=== PATIENT | female | born 1955 | race Caucasian/White ===

== ENCOUNTER → 2017-12-08 | Outpatient (CLI) | payer BC ==
[2017-12-08 08:30] LABS: Basophils # (auto) 0.1 uL; Basophils % (auto) 1.1 % (0.0-2.0); Eosinophils # (auto) 0.2 uL; Hematocrit 41.6 % (36.0-46.0); Hemoglobin 13.9 g/dL (12.2-16.2); Lymphocytes # (auto) 1.9 uL; Lymphocytes % (auto) 30.3 % (10.0-50.0); Mean Corpuscular Hemoglobin 31.4 pg (28.0-32.0); Mean Corpuscular Hgb Conc. 33.5 g/dL (32.0-36.0); Mean Corpuscular Volume 93.8 fL (80.0-100.0); Monocytes # (auto) 0.4 uL; Monocytes % (auto) 6.8 % (0.0-12.0); Neutrophils # (auto) 3.6 uL; Neutrophils % (auto) 58.8 % (37.0-80.0); Nucleated Red Blood Cells % 0.1 %; Platelet Count (auto) 298 10^3/uL (140-450); Red Blood Cells 4.43 10^6/uL (4.0-5.20); White Blood Cell 6.2 10^3/uL (4.4-10.8)
[2017-12-08 08:57] LABS: Urine Bacteria NONE SEEN /hpf (None Seen); Urine Blood Negative /uL (Negative); Urine Specific Gravity 1.013 (1.001-1.035); Urine WBC 1 /hpf (0 - 5)
[2017-12-08 10:11] LABS: BUN/Creatinine Ratio 15.2; Potassium 4.7 mmol/L (3.5-5.1)
== END | disposition home or self-care (01) ==
LOC: LAB 07:15
PROVIDERS: ATTEND Physician Assistant
DX: Z41.1 Encounter for cosmetic surgery (principal); N64.2 Atrophy of breast; M06.9 Rheumatoid arthritis, unspecified
CPT/HCPCS: 36415; 80048; 81001; 81025; 85025

== ENCOUNTER → 2018-08-31 | Outpatient (CLI) | payer BC ==
[2018-08-31 09:36] LABS: Basophils # (auto) 0.1 uL; Basophils % (auto) 1.1 % (0.0-2.0); Eosinophils # (auto) 0 uL; Eosinophils % (auto) 0.3 % (0.0-7.0); Hematocrit 43.6 % (36.0-46.0); Hemoglobin 14.5 g/dL (12.2-16.2); Lymphocytes # (auto) 2.4 uL; Lymphocytes % (auto) 22.8 % (10.0-50.0); Mean Corpuscular Hemoglobin 33.2 pg (28.0-32.0); Mean Corpuscular Hgb Conc. 33.2 g/dL (32.0-36.0); Mean Corpuscular Volume 100.1 fL (80.0-100.0); Monocytes # (auto) 0.7 uL; Monocytes % (auto) 6.2 % (0.0-12.0); Neutrophils # (auto) 7.4 uL; Neutrophils % (auto) 69.6 % (37.0-80.0); Platelet Count (auto) 378 10^3/uL (140-450); Red Blood Cells 4.35 10^6/uL (4.0-5.20); Red Cell Distribution Width 12.9 % (11.8-14.3); Urine Blood TRACE /uL (Negative); Urine Specific Gravity 1.003 (1.001-1.035); White Blood Cell 10.6 10^3/uL (4.4-10.8)
[2018-08-31 09:58] LABS: BUN/Creatinine Ratio 15.2; Potassium 3.8 mmol/L (3.5-5.1)
== END | disposition home or self-care (01) ==
LOC: LAB 09:20
PROVIDERS: ATTEND Physician Assistant
DX: Z01.818 Encounter for other preprocedural examination (principal)
CPT/HCPCS: 36415; 80048; 81003; 85025

== ENCOUNTER 2019-02-08 20:56 | Emergency (ER) | payer BC ==
[~2019-02-08] VITALS: Ht 162.6 cm; Wt 52.2 kg
[2019-02-09 02:00] VITALS: BP 118/81
== END 2019-02-09 03:03 | disposition home or self-care (01) ==
LOC: ER 20:56
DX: S30.1XXA Contusion of abdominal wall, initial encounter (principal); I25.2 Old myocardial infarction; Z88.2 Allergy status to sulfonamides; X58.XXXA Exposure to other specified factors, initial encounter; Y93.89 Activity, other specified; Y99.8 Other external cause status; Y92.89 Other specified places as the place of occurrence of the external cause
CPT/HCPCS: 73700

== ENCOUNTER → 2019-04-26 | Outpatient (CLI) | payer BC | END | disposition home or self-care (01) | LOC: XYW 08:25 | PROVIDERS: ATTEND Internal Medicine | DX: I08.1 Rheumatic disorders of both mitral and tricuspid valves (principal); I42.9 Cardiomyopathy, unspecified; F41.9 Anxiety disorder, unspecified; Z88.2 Allergy status to sulfonamides | CPT/HCPCS: 93306 ==

== ENCOUNTER 2019-08-11 10:39 | Emergency (ER) | payer BC ==
[~2019-08-11] VITALS: Ht 162.6 cm; Wt 55.8 kg
[2019-08-11] MEDS ORDERED: TETRACAINE HCL 2 % TOP SOL 30ML MT ONE (13:15)
[2019-08-11] MEDS ORDERED: OPHTHALMIC IRRIGATION SOLN 30ML RIGHTEYE ONE (13:15)
[2019-08-11] MEDS ORDERED: TETRACAINE HCL 0.5% OPTH(EYE) SOLN 4ML EACHEYE ONE (13:30)
[2019-08-11] MEDS ORDERED: FLUORESCEIN SOD 1 MG TEST STRIP EACHEYE ONE (13:30)
[2019-08-11] MEDS ORDERED: NEOMYCIN-POLYMY-DEXAMETH 0.1% OPTH(EYE) OINT 3.5GM RIGHTEYE ONE (14:00)
[2019-08-11 14:15] VITALS: BP 120/78
== END 2019-08-11 14:15 | disposition home or self-care (01) ==
LOC: ER 10:39
DX: H18.821 Corneal disorder due to contact lens, right eye (principal); I25.2 Old myocardial infarction; Z88.2 Allergy status to sulfonamides

== ENCOUNTER → 2021-06-29 | Outpatient (CLI) | payer BC | END | disposition home or self-care (01) | LOC: XYW 08:07 | PROVIDERS: ATTEND Internal Medicine | DX: I07.1 Rheumatic tricuspid insufficiency (principal); I05.0 Rheumatic mitral stenosis; I35.9 Nonrheumatic aortic valve disorder, unspecified; I35.0 Nonrheumatic aortic (valve) stenosis; I77.819 Aortic ectasia, unspecified site | CPT/HCPCS: 93306 ==

== ENCOUNTER → 2023-03-20 | Outpatient (CLI) | payer BC ==
[2023-03-20 10:33] LABS: Albumin 4.9 g/dL (3.2-4.8); Bilirubin, Direct 0.2 mg/dL (<0.3); Bilirubin, Total 0.7 mg/dL (0.2-1.0)
[2023-03-20 10:34] LABS: Total Protein 7.3 g/dL (5.7-8.2)
[2023-03-20 11:06] LABS: Hepatitis B Surface Antigen Negative (Negative)
[2023-03-20 11:26] LABS: Hepatitis A Ab IgM Negative
[2023-03-20 11:27] LABS: Hepatitis B Core IgM Negative; Hepatitis C Antibody Negative (Negative)
== END | disposition home or self-care (01) ==
LOC: LAB 09:41
DX: R74.8 Abnormal levels of other serum enzymes (principal)
CPT/HCPCS: 36415; 80076; 86705; 86709; 86803; 87340

== ENCOUNTER 2023-05-23 17:36 | Emergency (ER) | payer BC ==
[~2023-05-23] VITALS: Ht 162.6 cm; Wt 50.0 kg
[2023-05-23 18:17] LABS: Basophils # (auto) 0 10 ^3/uL (0-0.2); Basophils % (auto) 0.3 % (0.0-2.0); Eosinophils # (auto) 1.4 10 ^3/uL (0-0.8); Hemoglobin 10.4 g/dL (12.2-16.2); Mean Corpuscular Hemoglobin 31.2 pg (28.0-32.0); Mean Corpuscular Hgb Conc. 32.9 g/dL (32.0-36.0); Red Cell Distribution Width 15.7 % (11.8-14.3)
[2023-05-23 18:20] LABS: Eosinophils % (auto) 12.4 % (0.0-7.0); Hematocrit 31.6 % (36.0-46.0); Lymphocytes # (auto) 1.9 10 ^3/uL (0.4-5.4); Lymphocytes % (auto) 16.8 % (10.0-50.0); Mean Corpuscular Volume 94.8 fL (80.0-100.0); Monocytes # (auto) 0.7 10 ^3/uL (0-1.3); Monocytes % (auto) 6.5 % (0.0-12.0); Neutrophils # (auto) 7.2 10 ^3/uL (1.6-8.6); Nucleated Red Blood Cells % 0.1 %; Red Blood Cells 3.33 10^6/uL (4.0-5.20); White Blood Cell 11.3 10^3/uL (4.4-10.8)
[2023-05-23 18:33] LABS: Alanine Aminotransferase 59 U/L (7-40); Albumin 4.4 g/dL (3.2-4.8); Alkaline Phosphatase 186 U/L (46-116); Anion Gap 7 (5-15); Aspartate Aminotransferase 58 U/L (13-40); BUN/Creatinine Ratio 15.2 (10.0-20.0); Blood Urea Nitrogen 10 mg/dL (9-23); Calcium 9.2 mg/dL (8.7-10.4); Carbon Dioxide 26 mmol/L (20-30); Chloride 103 mmol/L (98-107); Glucose 101 mg/dL (74-106); Sodium 136 mmol/L (136-145)
[2023-05-23 18:34] LABS: Bilirubin, Total 0.5 mg/dL (0.2-1.0)
[2023-05-23] MEDS ORDERED: ONDANSETRON HCL 4 MG/2 ML VIAL IV ONE (19:15)
[2023-05-23] MEDS ORDERED: SODIUM CHLORIDE 0.9% 1,000 ML IV ONE (19:15)
[2023-05-23] MEDS ORDERED: FAMOTIDINE (10MG/ML) 2ML VL IV ONE (19:15)
[2023-05-23] MEDS ORDERED: HYDROmorphone HCL 2 MG/ML VL/or syr IV ONE (19:15)
[2023-05-23] MEDS ORDERED: SODIUM CHLORIDE 0.9% 1,000 ML IVB ONE (19:15)
[2023-05-23 19:57] LABS: Partial Thromboplastin Time 28.5 SEC (24.5-34.5); Prothrombin Time 10.5 sec (9.3-11.8)
[2023-05-23] MEDS ORDERED: IOHEXOL 350 MG/ML 100ML IJ ONE (20:42)
[2023-05-23 21:46] VITALS: PULSE 76; RESP 10; O2SAT 94
[2023-05-24 00:30] VITALS: TEMP 98.2
[2023-05-24] MEDS ORDERED: ONDANSETRON HCL 4 MG/2 ML VIAL ONE (01:10)
[2023-05-24] MEDS ORDERED: HYDROmorphone HCL 2 MG/ML VL/or syr ONE (01:10)
[2023-05-24 01:30] VITALS: O2SAT 96
[2023-05-24 01:40] VITALS: BP 132/75; PULSE 76; RESP 15
[2023-05-24] MEDS ORDERED: HYDROmorphone HCL 2 MG/ML VL/or syr IV ONE (01:45)
[2023-05-24] MEDS ORDERED: ONDANSETRON HCL 4 MG/2 ML VIAL IV ONE (01:45)
[2023-05-24 03:10] LABS: Urine Bacteria NONE SEEN /hpf (None Seen); Urine Blood Negative /uL (Negative); Urine Clarity Clear (Clear); Urine Color Colorless (Yellow); Urine Protein, UAD Negative (Negative); Urine Urobilinogen Normal (Negative); Urine WBC 5 /hpf (0 - 5)
[2023-05-24 03:11] LABS: Urine Specific Gravity > 1.050 (1.001-1.035)
[2023-05-24] MEDS ORDERED: NAPR-1334 PO (03:27)
[2023-05-24] MEDS ORDERED: PANT40TA2 PO (03:27)
[2023-05-24] MEDS ORDERED: METO-281 PO (03:27)
[2023-05-25] MEDS ORDERED: NAPR-1334 PO (09:55)
[2023-05-25] MEDS ORDERED: PANT40TA2 PO (09:55)
[2023-05-25] MEDS ORDERED: METO-281 PO (09:55)
== END 2023-05-24 04:11 | disposition home or self-care (01) ==
LOC: ER 17:36
DX: I71.40 Abdominal aortic aneurysm, without rupture, unspecified (principal); J90 Pleural effusion, not elsewhere classified; R79.89 Other specified abnormal findings of blood chemistry; I10 Essential (primary) hypertension; Z86.79 Personal history of other diseases of the circulatory system; Z98.890 Other specified postprocedural states
CPT/HCPCS: 36415; 70498; 71045; 71260; 74177; 80053; 81001; 83735; 83880; 84443; 84484; 85025; 85379; 85610; 85730; 93005; 96361; 96374; 96375; 96376; 99285; J1170; J2405; J3490; J7030; Q9967

== ENCOUNTER 2023-11-15 10:54 | Inpatient (IN) | payer BC ==
[~2023-11-15] VITALS: Ht 162.6 cm; Wt 52.8 kg
[~2023-11-15 10:54] MED LIST: ASPI1TAB20 PO; ATOR10TA52 PO; AZIT-43 PO; CARV6.2517 PO; ESCI20TA PO; LISI20TA56 PO; METO-281 PO; NAPR-1335 PO; PANT40TA2 PO; POM PO; PRED20TA2 PO; TEMA30CA5 PO
[2023-11-15] MEDS: IOHEXOL 350 MG/ML 100ML IJ ONE (11:29)
[2023-11-15 11:37] LABS: Basophils # (auto) 0 10 ^3/uL (0-0.2); Basophils % (auto) 0.2 % (0.0-2.0); Eosinophils # (auto) 0.1 10 ^3/uL (0-0.8); Eosinophils % (auto) 0.6 % (0.0-7.0); Hematocrit 40.2 % (36.0-46.0); Hemoglobin 13.2 g/dL (12.2-16.2); Mean Corpuscular Hemoglobin 30.7 pg (28.0-32.0); Mean Corpuscular Hgb Conc. 32.8 g/dL (32.0-36.0); Mean Corpuscular Volume 93.6 fL (80.0-100.0); Monocytes # (auto) 0.8 10 ^3/uL (0-1.3); Monocytes % (auto) 5.7 % (0.0-12.0); Neutrophils % (auto) 86.5 % (37.0-80.0); Red Cell Distribution Width 15.4 % (11.8-14.3); White Blood Cell 13.9 10^3/uL (4.4-10.8)
[2023-11-15 11:52] LABS: Alanine Aminotransferase 46 U/L (7-40); Alkaline Phosphatase 112 U/L (46-116); Calcium 10.3 mg/dL (8.5-10.1)
[2023-11-15 11:53] LABS: Albumin 3.9 g/dL (3.2-4.8); Anion Gap 3 (5-15); Aspartate Aminotransferase 88 U/L (13-40); BUN/Creatinine Ratio 11.9 (10.0-20.0); Bilirubin, Total 0.7 mg/dL (0.2-1.0); Blood Urea Nitrogen 12 mg/dL (9-23); Carbon Dioxide 26 mmol/L (20-30); Chloride 102 mmol/L (98-107); Glucose 125 mg/dL (74-106); Potassium 4.4 mmol/L (3.5-5.1); Sodium 131 mmol/L (136-145); Total Protein 7.2 g/dL (5.7-8.2)
[2023-11-15] MEDS: SODIUM CHLORIDE 0.9% 1,000 ML IV ONE (12:30)
[2023-11-15 13:08] LABS: Urine Bacteria None Seen /hpf (None Seen)
[2023-11-15 13:16] LABS: Urine Blood Negative /uL (Negative); Urine Clarity Clear (Clear); Urine Color Light-Yellow (Yellow); Urine Protein, UAD TRACE (Negative); Urine Specific Gravity 1.049 (1.001-1.035); Urine Urobilinogen Normal (Negative); Urine WBC 2 /hpf (0 - 5)
[2023-11-15 15:15] VITALS: PULSE 64; RESP 13; O2SAT 98
[2023-11-15] MEDS: HYDROmorphone HCL 2 MG/ML VL/or syr IV ONE (16:30)
[2023-11-15] MEDS: ONDANSETRON HCL 4 MG/2 ML VIAL IV ONE (16:31)
[2023-11-15] MEDS ORDERED: hydrALAZINE HCL 20 MG/ML VL IV PRN (17:15)
[2023-11-15] MEDS ORDERED: ACETAMINOPHEN 325 MG TAB PO PRN (18:15)
[2023-11-15] MEDS ORDERED: MORPHINE SULFATE INJ 2 MG/ml SYRG IV PRN ×2 (18:15)
[2023-11-15] MEDS ORDERED: NITROGLYCERIN 0.4 MG SL TAB SL PRN (18:15)
[2023-11-15] MEDS ORDERED: DOCUSATE SOD 100 MG CAP PO PRN (18:15)
[2023-11-15] MEDS: cefTRIAXone 1GM/50ML D5W 50 ML IV ONE (18:34)
[2023-11-15 19:30] VITALS: PULSE 81; RESP 13; O2SAT 96
[2023-11-15] MEDS: HYDROcodone-ACET 5/325MG TAB PO PRN (20:57)
[2023-11-15] MEDS: SODIUM CHLOR 0.9% PF (SALINE LOCK) 10ML VIAL/SYR IV SCH (22:24)
[2023-11-15] MEDS: ATORVASTATIN 20 MG TAB PO SCH (22:24)
[2023-11-15] MEDS: CARVEDILOL 3.125 MG TAB PO SCH (22:24)
[2023-11-15 23:18] VITALS: BP 122/63; PULSE 69; RESP 18; TEMP 98.2; TEMP 98.7; O2SAT 97; O2SAT 98
[2023-11-15] MEDS: MELATONIN 5 MG TAB PO ONE (23:58)
[2023-11-16] VITALS (10 sets, daily range): BP systolic 99–128; BP diastolic 52–69; PULSE 60–91; RESP 17–20; TEMP 98.1–98.8; O2SAT 95–100
[2023-11-16] MEDS: METOCLOPRAMIDE HCL 5MG/ml INJ 2ml VIAL IV SCH (00:24)
[2023-11-16] MEDS: PANTOPRAZOLE 40 MG TAB PO SCH (05:36)
[2023-11-16 07:21] LABS: Basophils # (auto) 0.1 10 ^3/uL (0-0.2); Basophils % (auto) 0.5 % (0.0-2.0); Eosinophils # (auto) 0.1 10 ^3/uL (0-0.8); Eosinophils % (auto) 0.9 % (0.0-7.0); Hematocrit 36.8 % (36.0-46.0); Hemoglobin 12.3 g/dL (12.2-16.2); Lymphocytes # (auto) 1.5 10 ^3/uL (0.4-5.4); Lymphocytes % (auto) 11.7 % (10.0-50.0); Mean Corpuscular Hemoglobin 31.2 pg (28.0-32.0); Mean Corpuscular Hgb Conc. 33.3 g/dL (32.0-36.0); Mean Corpuscular Volume 93.6 fL (80.0-100.0); Monocytes # (auto) 1.1 10 ^3/uL (0-1.3); Monocytes % (auto) 8.4 % (0.0-12.0); Neutrophils % (auto) 78.5 % (37.0-80.0); Red Blood Cells 3.93 10^6/uL (4.0-5.20); Red Cell Distribution Width 15.5 % (11.8-14.3); White Blood Cell 12.8 10^3/uL (4.4-10.8)
[2023-11-16 07:31] LABS: Alanine Aminotransferase 39 U/L (7-40); Alkaline Phosphatase 99 U/L (46-116); Anion Gap 1 (5-15); Aspartate Aminotransferase 57 U/L (13-40); BUN/Creatinine Ratio 12.2 (10.0-20.0); Blood Urea Nitrogen 12 mg/dL (9-23); Calcium 9.4 mg/dL (8.5-10.1); Carbon Dioxide 28 mmol/L (20-30); Chloride 106 mmol/L (98-107); Glucose 107 mg/dL (74-106); Potassium 4.7 mmol/L (3.5-5.1); Sodium 135 mmol/L (136-145)
[2023-11-16 07:32] LABS: Bilirubin, Total 0.4 mg/dL (0.2-1.0); Total Protein 6.4 g/dL (5.7-8.2)
[2023-11-16] MEDS: cefTRIAXone 1GM/50ML D5W 50 ML IV SCH (08:28)
[2023-11-16] MEDS: CITALOPRAM HYDROBR 20 MG TAB PO SCH (08:29)
[2023-11-16] MEDS: ASPirin 81 mg TAB PO SCH (08:30)
[2023-11-16] MEDS: ENOXAPARIN SOD 40 MG/0.4 ML SYRINGE SC SCH (08:31)
[2023-11-16] MEDS: LISINOPRIL 20 MG TAB PO SCH (09:30)
[2023-11-16] MEDS: ONDANSETRON HCL 4 MG/2 ML VIAL IV PRN (10:30)
[2023-11-16] MEDS ORDERED: ATOR20TA PO (11:16)
[2023-11-16] MEDS ORDERED: TEMA15CA PO (11:16)
[2023-11-16] MEDS ORDERED: CARV3.1240 PO (11:16)
[2023-11-16] MEDS ORDERED: METO10TA3 PO (11:17)
[2023-11-16] MEDS ORDERED: ALPR0.254 PO (11:29)
[2023-11-16] MEDS ORDERED: POTA-220 PO (11:29)
[2023-11-16] MEDS ORDERED: FURO20TA3 PO (11:29)
[2023-11-16] MEDS: FUROSEMIDE 20 MG TAB PO ONE (12:43)
[2023-11-17] VITALS (8 sets, daily range): BP systolic 122–133; BP diastolic 52–65; PULSE 63–76; RESP 16–20; TEMP 37.1; O2SAT 94–96
[2023-11-17 06:50] LABS: Basophils # (auto) 0 10 ^3/uL (0-0.2); Basophils % (auto) 0.5 % (0.0-2.0); Eosinophils # (auto) 0.2 10 ^3/uL (0-0.8); Eosinophils % (auto) 1.5 % (0.0-7.0); Hemoglobin 11.5 g/dL (12.2-16.2); Lymphocytes # (auto) 1.9 10 ^3/uL (0.4-5.4); Lymphocytes % (auto) 18.3 % (10.0-50.0); Mean Corpuscular Hemoglobin 31.8 pg (28.0-32.0); Mean Corpuscular Hgb Conc. 33.8 g/dL (32.0-36.0); Mean Corpuscular Volume 93.9 fL (80.0-100.0); Monocytes # (auto) 1.2 10 ^3/uL (0-1.3); Monocytes % (auto) 11.6 % (0.0-12.0); Neutrophils # (auto) 7.2 10 ^3/uL (1.6-8.6); Neutrophils % (auto) 68.1 % (37.0-80.0); Nucleated Red Blood Cells % 0.1 %; Red Blood Cells 3.62 10^6/uL (4.0-5.20); Red Cell Distribution Width 15.5 % (11.8-14.3); White Blood Cell 10.5 10^3/uL (4.4-10.8)
[2023-11-17 07:00] LABS: Anion Gap 1 (5-15); Carbon Dioxide 30 mmol/L (20-30); Chloride 104 mmol/L (98-107); Potassium 4.7 mmol/L (3.5-5.1); Sodium 135 mmol/L (136-145)
[2023-11-17 07:02] LABS: Calcium 9.7 mg/dL (8.7-10.4)
[2023-11-17 07:07] LABS: BUN/Creatinine Ratio 13.6 (10.0-20.0); Blood Urea Nitrogen 14 mg/dL (9-23); Glucose 89 mg/dL (74-106)
[2023-11-17] MEDS ORDERED: GADOTERATE MEG 7.5 MMOL/15ml INJ (0.5MMOL/ml) IV ONE (07:17)
[2023-11-17] MEDS: ASPirin 81 mg TAB PO SCH (10:35)
[2023-11-17] MEDS: FUROSEMIDE 20 MG TAB PO SCH (10:35)
== END 2023-11-17 16:54 | disposition home or self-care (01) | DRG 280 ==
LOC: EDUNIT# 10:54 → EDBD 10:54 → ER 10:54 → TELE 18:10 → TELE-WESTW 18:10
PROVIDERS: ADMIT Internal Medicine Geriatric Medicine; ATTEND Internal Medicine Geriatric Medicine
DX: I71.02 Dissection of abdominal aorta (principal); I77.72 Dissection of iliac artery; I21.A1 Myocardial infarction type 2; N28.0 Ischemia and infarction of kidney; Q79.60 Ehlers-Danlos syndrome, unspecified; G82.20 Paraplegia, unspecified; I71.011 Dissection of aortic arch; I71.019 Dissection of thoracic aorta, unspecified; I10 Essential (primary) hypertension; E78.5 Hyperlipidemia, unspecified; F32.A Depression, unspecified; F41.9 Anxiety disorder, unspecified; K21.9 Gastro-esophageal reflux disease without esophagitis; F17.210 Nicotine dependence, cigarettes, uncomplicated; I27.20 Pulmonary hypertension, unspecified; I44.0 Atrioventricular block, first degree; Z88.2 Allergy status to sulfonamides; Z87.440 Personal history of urinary (tract) infections; Z80.7 Family history of other malignant neoplasms of lymphoid, hematopoietic and related tissues
CPT/HCPCS: 36415; 70450; 71260; 72157; 72158; 74177; 80048; 80053; 81001; 83615; 83735; 84484; 85025; 85379; 93005; 96365; 96375; 99291; G0378; J2405

== ENCOUNTER 2024-03-08 09:38 | Day surgery (SDC) | payer BC ==
[2024-03-06 10:02] LABS: Urine Bacteria None Seen /hpf (None Seen)
[2024-03-06 10:12] LABS: Basophils # (auto) 0 10 ^3/uL (0-0.2); Basophils % (auto) 0.6 % (0.0-2.0); Eosinophils # (auto) 0 10 ^3/uL (0-0.8); Eosinophils % (auto) 0.4 % (0.0-7.0); Hematocrit 36.5 % (36.0-46.0); Hemoglobin 12.7 g/dL (12.2-16.2); Lymphocytes # (auto) 1.1 10 ^3/uL (0.4-5.4); Lymphocytes % (auto) 14.6 % (10.0-50.0); Mean Corpuscular Hemoglobin 35.3 pg (28.0-32.0); Mean Corpuscular Hgb Conc. 34.9 g/dL (32.0-36.0); Mean Corpuscular Volume 101.1 fL (80.0-100.0); Monocytes # (auto) 0.5 10 ^3/uL (0-1.3); Monocytes % (auto) 6.7 % (0.0-12.0); Neutrophils # (auto) 5.6 10 ^3/uL (1.6-8.6); Neutrophils % (auto) 77.7 % (37.0-80.0); Platelet Count (auto) 247 10^3/uL (140-450); Red Blood Cells 3.61 10^6/uL (4.0-5.20); Red Cell Distribution Width 14.2 % (11.8-14.3); White Blood Cell 7.3 10^3/uL (4.4-10.8)
[2024-03-06 10:42] LABS: INR 1.01 (0.9-1.15); Partial Thromboplastin Time 26.8 SEC (24.5-34.5); Prothrombin Time 10.7 sec (9.3-11.8)
[2024-03-06 10:48] LABS: Urine Blood 1+ /uL (Negative); Urine Clarity Clear (Clear); Urine Color Yellow (Yellow); Urine Protein, UAD 1+ (Negative); Urine Specific Gravity 1.014 (1.001-1.035); Urine Urobilinogen Normal (Negative); Urine WBC 2 /hpf (0 - 5); Urine pH 6.5 (5.0-9.0)
[2024-03-06 10:59] LABS: Alanine Aminotransferase 79 U/L (7-40); Albumin 4.4 g/dL (3.2-4.8); Alkaline Phosphatase 156 U/L (46-116); Anion Gap 5 (5-15); Aspartate Aminotransferase 159 U/L (13-40); BUN/Creatinine Ratio 10.9 (10.0-20.0); Blood Urea Nitrogen 11 mg/dL (9-23); Carbon Dioxide 29 mmol/L (20-30); Chloride 105 mmol/L (98-107); Glucose 89 mg/dL (74-106); Potassium 4.2 mmol/L (3.5-5.1); Sodium 139 mmol/L (136-145)
[2024-03-06 11:00] LABS: Total Protein 6.9 g/dL (5.7-8.2)
[~2024-03-08] VITALS: Ht 162.6 cm; Wt 54.4 kg
[~2024-03-08 09:38] MED LIST changes: +ALPR0.254 PO; -ATOR10TA52 PO; +ATOR20TA PO; -AZIT-43 PO; +CARV3.1240 PO; -CARV6.2517 PO; +FURO20TA3 PO; -METO-281 PO; +METO10TA3 PO; -NAPR-1335 PO; +POTA-220 PO; -PRED20TA2 PO; -TEMA30CA5 PO
[2024-03-08] MEDS ORDERED: MIDAZOLAM HCL 2MG/2ML 2ml VIAL (1mg/ml) ONE (11:37)
[2024-03-08] MEDS ORDERED: fentaNYL CITRATE 100 MCG/2 ML VL ONE (11:37)
[2024-03-08] MEDS ORDERED: ONDANSETRON HCL 4 MG/2 ML VIAL ONE (11:44)
[2024-03-08 11:57] VITALS: PULSE 59; RESP 11; O2SAT 97
[2024-03-08 12:25] VITALS: BP 146/67; PULSE 55; RESP 16; TEMP 97; O2SAT 98
[2024-03-08] MEDS ORDERED: PROPOFOL 10 MG/ML 20 ML IV ONE (12:52)
== END 2024-03-08 12:40 | disposition home or self-care (01) ==
LOC: GI 09:38
PROVIDERS: ATTEND Internal Medicine Gastroenterology
DX: Z12.11 Encounter for screening for malignant neoplasm of colon (principal); D12.6 Benign neoplasm of colon, unspecified; K64.0 First degree hemorrhoids; K63.5 Polyp of colon; I10 Essential (primary) hypertension; I25.2 Old myocardial infarction; F17.210 Nicotine dependence, cigarettes, uncomplicated; F41.9 Anxiety disorder, unspecified; F32.9 Major depressive disorder, single episode, unspecified; I27.20 Pulmonary hypertension, unspecified; Z98.51 Tubal ligation status; Z98.890 Other specified postprocedural states; Z86.010 Personal history of colon polyps; Z79.899 Other long term (current) drug therapy; Z88.2 Allergy status to sulfonamides
CPT/HCPCS: 36415; 45380; 80053; 81001; 85025; 85610; 85730; 88305; J2250; J2405; J2704; J3010; J7030

== ENCOUNTER → 2024-04-15 | Outpatient (CLI) | payer BC ==
[2024-04-15 08:39] LABS: Alanine Aminotransferase 72 U/L (7-40); Alkaline Phosphatase 187 U/L (46-116); Anion Gap 7 (5-15); BUN/Creatinine Ratio 9.2 (10.0-20.0); Blood Urea Nitrogen 9 mg/dL (9-23); Carbon Dioxide 34 mmol/L (20-31); Chloride 96 mmol/L (98-107); Glucose 157 mg/dL (74-106); Potassium 3.1 mmol/L (3.5-5.1); Sodium 137 mmol/L (136-145)
[2024-04-15 08:40] LABS: Albumin 4.1 g/dL (3.2-4.8); Aspartate Aminotransferase 112 U/L (13-40); Bilirubin, Total 0.9 mg/dL (0.2-1.0); Total Protein 6.9 g/dL (5.7-8.2)
== END | disposition home or self-care (01) ==
LOC: LAB 08:07
PROVIDERS: ATTEND Thoracic Surgery (Cardiothoracic Vascular Surgery)
DX: I71.02 Dissection of abdominal aorta (principal)
CPT/HCPCS: 36415; 80053

== ENCOUNTER → 2024-07-22 | Outpatient (CLI) | payer BC ==
[2024-07-22 10:10] LABS: Basophils # (auto) 0.1 10 ^3/uL (0-0.2); Basophils % (auto) 0.6 % (0.0-2.0); Eosinophils # (auto) 0.1 10 ^3/uL (0-0.8); Eosinophils % (auto) 0.8 % (0.0-7.0); Hematocrit 38.4 % (36.0-46.0); Hemoglobin 12.8 g/dL (12.2-16.2); Lymphocytes # (auto) 1.5 10 ^3/uL (0.4-5.4); Mean Corpuscular Hemoglobin 32.5 pg (28.0-32.0); Mean Corpuscular Hgb Conc. 33.3 g/dL (32.0-36.0); Mean Corpuscular Volume 97.5 fL (80.0-100.0); Monocytes # (auto) 0.8 10 ^3/uL (0-1.3); Neutrophils % (auto) 78.6 % (37.0-80.0); Platelet Count (auto) 365 10^3/uL (140-450); Red Blood Cells 3.94 10^6/uL (4.0-5.20); Red Cell Distribution Width 13.8 % (11.8-14.3); White Blood Cell 11.4 10^3/uL (4.4-10.8)
[2024-07-22 10:24] LABS: INR 0.97 (0.9-1.15); Prothrombin Time 10.3 sec (9.3-11.8)
[2024-07-22 12:12] LABS: Alkaline Phosphatase 108 U/L (46-116); Anion Gap 7 (5-15); BUN/Creatinine Ratio 15.9 (10.0-20.0); Blood Urea Nitrogen 14 mg/dL (9-23); Carbon Dioxide 27 mmol/L (20-31); Chloride 104 mmol/L (98-107); Glucose 102 mg/dL (74-106); Potassium 4.4 mmol/L (3.5-5.1); Sodium 138 mmol/L (136-145)
[2024-07-22 12:13] LABS: Albumin 4.8 g/dL (3.2-4.8); Aspartate Aminotransferase 31 U/L (13-40); Bilirubin, Total 0.5 mg/dL (0.2-1.0); Total Protein 7.5 g/dL (5.7-8.2)
[2024-07-22 12:14] LABS: Alanine Aminotransferase 46 U/L (7-40); Calcium 10.5 mg/dL (8.7-10.4)
== END | disposition home or self-care (01) ==
LOC: LAB 09:47
PROVIDERS: ATTEND Internal Medicine Gastroenterology
DX: R94.5 Abnormal results of liver function studies (principal)
CPT/HCPCS: 36415; 80053; 82105; 85025; 85610

== ENCOUNTER 2025-01-15 07:57 | Outpatient (CLI) | payer MEDICARE ==
[2025-01-15 08:19] LABS: Hematocrit 37.9 % (36.0-46.0); Hemoglobin 12.9 g/dL (12.2-16.2); Mean Corpuscular Hemoglobin 31.5 pg (28.0-32.0); Mean Corpuscular Volume 92.6 fL (80.0-100.0); Nucleated Red Blood Cells % 0.0 %
[2025-01-15 08:31] LABS: INR 1.0 (0.9-1.15); Prothrombin Time 10.6 sec (9.3-11.8)
[2025-01-15 09:10] LABS: Alanine Aminotransferase 27 U/L (7-40); Albumin 4.4 g/dL (3.2-4.8); Alkaline Phosphatase 88 U/L (46-116); Anion Gap 8 (5-15); BUN/Creatinine Ratio 21.0 (10.0-20.0); Bilirubin, Total 0.6 mg/dL (0.2-1.0); Blood Urea Nitrogen 21 mg/dL (9-23); Calcium 10.3 mg/dL (8.7-10.4); Carbon Dioxide 25 mmol/L (20-31); Cholesterol 132 mg/dL (< 200); Glucose 96 mg/dL (74-106); Potassium 4.7 mmol/L (3.5-5.1); Sodium 142 mmol/L (136-145); Total Protein 6.6 g/dL (5.7-8.2); Triglycerides 50 mg/dL (< 150)
[2025-01-15 09:14] LABS: Ferritin 53.5 ng/mL (10-291)
[2025-01-15 09:18] LABS: Chloride 109 mmol/L (98-107); HDL Cholesterol 66 mg/dL (40-59)
== END 2025-01-15 17:00 | disposition home or self-care (01) ==
LOC: LAB 07:57
PROVIDERS: ATTEND Internal Medicine Gastroenterology
DX: R94.5 Abnormal results of liver function studies (principal); K31.9 Disease of stomach and duodenum, unspecified; K76.9 Liver disease, unspecified; Z79.899 Other long term (current) drug therapy
CPT/HCPCS: 36415; 80053; 80061; 82607; 82728; 84443; 85025; 85610; 86038

== ENCOUNTER 2025-02-20 06:54 | Outpatient (CLI) | payer MEDICARE ==
[2025-02-20 07:25] LABS: Hematocrit 37.8 % (36.0-46.0); Hemoglobin 12.9 g/dL (12.2-16.2); Mean Corpuscular Hemoglobin 31.2 pg (28.0-32.0); Mean Corpuscular Volume 91.6 fL (80.0-100.0); Nucleated Red Blood Cells % 0.1 %
[2025-02-20 07:45] LABS: Alanine Aminotransferase 28 U/L (7-40); Albumin 4.3 g/dL (3.2-4.8); Alkaline Phosphatase 81 U/L (46-116); Anion Gap 7 (5-15); BUN/Creatinine Ratio 25.0 (10.0-20.0); Calcium 9.7 mg/dL (8.7-10.4); Carbon Dioxide 25 mmol/L (20-31); Cholesterol 132 mg/dL (< 200); Glucose 103 mg/dL (74-106); Potassium 5.0 mmol/L (3.5-5.1); Sodium 142 mmol/L (136-145); Total Protein 7.0 g/dL (5.7-8.2); Triglycerides 83 mg/dL (< 150)
[2025-02-20 07:46] LABS: Bilirubin, Total 0.6 mg/dL (0.2-1.0); Blood Urea Nitrogen 24 mg/dL (9-23); Chloride 110 mmol/L (98-107); HDL Cholesterol 61 mg/dL (40-59)
== END 2025-02-20 17:00 | disposition home or self-care (01) ==
LOC: LAB 06:54
PROVIDERS: ATTEND Nurse Practitioner Family
DX: D51.0 Vitamin B12 deficiency anemia due to intrinsic factor deficiency (principal); N95.1 Menopausal and female climacteric states; E78.5 Hyperlipidemia, unspecified; Z00.00 Encounter for general adult medical examination without abnormal findings
CPT/HCPCS: 36415; 80053; 80061; 82607; 82672; 84144; 84403; 84443; 85025